=== PATIENT | male | born 1995 | race Hispanic/Latino ===

== ENCOUNTER 2019-03-11 12:24 | Emergency (ER) | payer SELFPAY ==
[2019-03-11] MEDS ORDERED: Fluorescein Opthalmic Strip ONE ×2 (13:29→13:30)
[2019-03-11] MEDS ORDERED: Proparacaine 0.5% Opth 15 ML BOT ONE (13:29)
== END 2019-03-11 14:00 | disposition home or self-care (01) ==
LOC: ERS 12:24
DX: T15.12XA Foreign body in conjunctival sac, left eye, initial encounter (principal); X58.XXXA Exposure to other specified factors, initial encounter
CPT/HCPCS: 99283